=== PATIENT | male | born 1960 | race African-American/Black ===

== ENCOUNTER 2017-01-27 09:23 | Inpatient (IN) | payer MEDICAID ==
[~2017-01-27] VITALS: Ht 175.3 cm; Wt 92.2 kg
[~2017-01-27 09:23] MED LIST: ASPI-1159 PO; MAGN400T29 PO; SPIR25TA4 PO
[2017-01-27] MEDS ORDERED: ONDANSETRON HCL 4MG/2ML VIAL IV STA (10:29)
[2017-01-27] MEDS ORDERED: MORPHINE SULFATE 4 MG/ML CPJ (NOT FOR IM USE) IV STA (10:29)
[2017-01-27] MEDS ORDERED: LIDOCAINE HCL 1%/EPI 1:200,000 30 ML VIAL MC ONE (10:30)
[2017-01-27] MEDS ORDERED: TETANUS, DIPHTHERIA, PERTUSSIS VAC/PF 0.5ML (>7YR OLD) IM ONE (10:30)
[2017-01-27] MEDS ORDERED: BACITRACIN ZINC OINT UDPKT TOP ONE (10:30)
[2017-01-27 10:54] LABS: EOSINOPHILS % 2.8 % (0.0-5.0); HEMATOCRIT. 36.4 % (42.0-52.0); HEMOGLOBIN. 12.1 g/dL (14.0-18.0); LYMPHOCYTES % 20.9 % (20.0-50.0); MEAN CORPUSCULAR HEMOGLOBIN 31.6 pg (28.0-32.0); MEAN CORPUSCULAR VOLUME 95.3 fL (80.0-94.0); MEAN PLATELET VOLUME 7.4 fl (7.4-10.4); MONOCYTES % 8.9 % (2.0-8.0); NEUTROPHILS % 66.4 % (40.0-76.0); PLATELET 224 x1000/uL (130-400); RED BLOOD CELL COUNT 3.82 mill/uL (4.7-6.1); RED CELL DISTRIBUTION WIDTH 16.8 % (11.6-14.6)
[2017-01-27 11:02] LABS: INR 1.3; PARTIAL THROMBOPLASTIN TIME 28.2 sec (23.4-31.0); PROTHROMBIN TIME 13.5 sec (9.4-11.6)
[2017-01-27 11:12] LABS: CARBON DIOXIDE 32 mEq/L (21-32); CHLORIDE 104 mEq/L (98-107); CREATINE KINASE 97 IU/L (39-308); TROPONIN I 0.03 ng/mL (0.00-0.04)
[2017-01-27] MEDS ORDERED: POTASSIUM CHLORIDE 20MEQ TABLET SR PO ONE (12:00)
[2017-01-27 17:45] LABS: CLARITY URINE CLEAR (CLEAR); COLOR URINE DARK YELLOW (YELLOW); GLUCOSE URINE NEGATIVE (NEGATIVE); KETONES URINE TRACE (NEGATIVE); LEUKOCYTE ESTERASE URINE TRACE (NEGATIVE); NITRITE URINE NEGATIVE (NEGATIVE); OCCULT BLOOD URINE NEGATIVE (NEGATIVE); PH URINE 5.5 (4.5-8.0); PROTEIN URINE 2+ (NEGATIVE); SPECIFIC GRAVITY URINE 1.027 (1.005-1.030)
[2017-01-27 20:00] VITALS: BP 113/89
[2017-01-27] MEDS ORDERED: FURO40TA5 PO (20:22)
[2017-01-28] VITALS (7 sets, daily range): BP systolic 93–117; BP diastolic 58–81
[2017-01-28] MEDS ORDERED: DIPHENHYDRAMINE 50MG/ML VIAL IV PRN (01:00)
[2017-01-28] MEDS ORDERED: MAGNESIUM/ALUMINUM HYDROXIDE/SIMETHICONE 30ML UDC PO PRN (01:00)
[2017-01-28] MEDS ORDERED: ONDANSETRON HCL 4MG/2ML VIAL IV PRN (01:00)
[2017-01-28] MEDS ORDERED: IPRATROPIUM/ALBUTEROL 0.5-3(2.5)MG/3ML NEB INH PRN (01:00)
[2017-01-28] MEDS ORDERED: ACETAMINOPHEN 325MG TABLET PO PRN (01:00)
[2017-01-28] MEDS ORDERED: GUAIFENESIN 200MG/10ML SUGAR FREE UDC PO PRN (01:00)
[2017-01-28] MEDS ORDERED: CLONIDINE 0.1MG TABLET PO PRN (01:00)
[2017-01-28] MEDS ORDERED: POTASSIUM CHLORIDE 20MEQ TABLET SR PO NR (02:30)
[2017-01-28] MEDS ORDERED: MAGNESIUM 2 G PREMIX 50 ML IV NR (03:00)
[2017-01-28] MEDS: SODIUM CHLORIDE 0.9% INJ 3ML FLUSH IVF SCH ×2 (06:01→15:33)
[2017-01-28] MEDS: CARVEDILOL 6.25 MG TABLET PO SCH ×2 (08:43→21:00)
[2017-01-28] MEDS ORDERED: POTASSIUM CHLORIDE 20MEQ TABLET SR PO SCH (09:00)
[2017-01-28] MEDS ORDERED: FUROSEMIDE 40MG/4ML VIAL IVP SCH (09:00)
[2017-01-28] MEDS ORDERED: SPIRONOLACTONE 25MG TABLET PO SCH (09:00)
[2017-01-28] MEDS ORDERED: LOSARTAN POTASSIUM 50 MG TABLET PO SCH (09:00)
[2017-01-28] MEDS ORDERED: ASPIRIN 81MG EC TABLET PO SCH (09:00)
[2017-01-28 10:04] LABS: CARBON DIOXIDE 31 mEq/L (21-32); CHLORIDE 102 mEq/L (98-107)
[2017-01-28] MEDS ORDERED: AMIODARONE HCL 200 MG TABLET PO SCH (21:00)
== END 2017-01-28 22:52 | disposition short-term general hospital (02) | DRG 48 ==
LOC: ER 09:36 → 5WST 13:20 → EDBEDREQ 13:29 → ENRESERV 17:48 → CANBEDREQ 01-28 01:41
PROVIDERS: ADMIT Internal Medicine; ATTEND Internal Medicine
PROC: 08QPXZZ Repair Left Upper Eyelid, External Approach (ICD-10-PCS; principal; 2017-01-28)
DX: G90.9 Disorder of the autonomic nervous system, unspecified (principal); E43 Unspecified severe protein-calorie malnutrition; I42.0 Dilated cardiomyopathy; R18.8 Other ascites; I27.2 Other secondary pulmonary hypertension; I11.0 Hypertensive heart disease with heart failure; I50.20 Unspecified systolic (congestive) heart failure; E83.42 Hypomagnesemia; E11.9 Type 2 diabetes mellitus without complications; E87.6 Hypokalemia; Z60.2 Problems related to living alone; I08.1 Rheumatic disorders of both mitral and tricuspid valves; F17.200 Nicotine dependence, unspecified, uncomplicated; J44.9 Chronic obstructive pulmonary disease, unspecified; Z91.19 Patient's noncompliance with other medical treatment and regimen; Z82.49 Family history of ischemic heart disease and other diseases of the circulatory system; Z95.810 Presence of automatic (implantable) cardiac defibrillator; S09.93XA Unspecified injury of face, initial encounter; Z68.30 Body mass index [BMI] 30.0-30.9, adult; S01.119A Laceration without foreign body of unspecified eyelid and periocular area, initial encounter; X58.XXXA Exposure to other specified factors, initial encounter; Y93.9 Activity, unspecified; Y92.9 Unspecified place or not applicable; S01.81XA Laceration without foreign body of other part of head, initial encounter
CPT/HCPCS: 12011; 36415; 70450; 71010; 72125; 80048; 80053; 81001; 82550; 83690; 83735; 83880; 84443; 84484; 85025; 85610; 85730; 90471; 90715; 93005; 93306; 93970; 96374; 96375; 99285; 99406; J1940; J2270; J2405; J3475; J7050

== ENCOUNTER 2017-02-02 08:47 | Emergency (ER) | payer MEDICAID ==
[~2017-02-02] VITALS: Ht 180.3 cm; Wt 90.0 kg
[2017-02-02 09:30] LABS: BASOPHILS % 1.3 % (0.0-2.0); EOSINOPHILS % 6.1 % (0.0-5.0); HEMOGLOBIN. 11.5 g/dL (14.0-18.0); LYMPHOCYTES % 21.3 % (20.0-50.0); MEAN CORPUSCULAR HEMOGLOBIN 31.4 pg (28.0-32.0); MEAN CORPUSCULAR VOLUME 95.7 fL (80.0-94.0); MEAN PLATELET VOLUME 7.8 fl (7.4-10.4); MONOCYTES % 12.4 % (2.0-8.0); NEUTROPHILS % 58.9 % (40.0-76.0); PLATELET 244 x1000/uL (130-400); RED BLOOD CELL COUNT 3.66 mill/uL (4.7-6.1); RED CELL DISTRIBUTION WIDTH 16.3 % (11.6-14.6)
[2017-02-02 09:38] LABS: INR 1.3; PARTIAL THROMBOPLASTIN TIME 27.3 sec (23.4-31.0)
[2017-02-02 09:41] LABS: CARBON DIOXIDE 34 mEq/L (21-32); CHLORIDE 98 mEq/L (98-107)
[2017-02-02 09:46] LABS: TROPONIN I 0.03 ng/mL (0.00-0.04)
[2017-02-02 11:27] VITALS: BP 120/73
== END 2017-02-02 11:31 | disposition home or self-care (01) ==
LOC: ER 08:53
DX: T81.30XA Disruption of wound, unspecified, initial encounter (principal); Y83.8 Other surgical procedures as the cause of abnormal reaction of the patient, or of later complication, without mention of misadventure at the time of the procedure; Y92.89 Other specified places as the place of occurrence of the external cause; G89.18 Other acute postprocedural pain; I51.7 Cardiomegaly; F14.10 Cocaine abuse, uncomplicated; I50.9 Heart failure, unspecified; F17.210 Nicotine dependence, cigarettes, uncomplicated; Z95.0 Presence of cardiac pacemaker; Z79.82 Long term (current) use of aspirin
CPT/HCPCS: 36415; 71010; 80053; 83880; 84484; 85025; 85610; 85730; 93005; 99285; Z7610